=== PATIENT | male | born 1990 | race Hispanic/Latino ===

== ENCOUNTER 2017-02-21 16:11 | Emergency (ER) | payer OTHER ==
[~2017-02-21] VITALS: Ht 180.3 cm; Wt 70.5 kg
[2017-02-21 16:27] VITALS: BP 130/83; PULSE 77; RESP 16; O2SAT 100
--- NOTE | 2017-02-21 18:09 | ED.REPORT ---
HPI-Dental/Mouth Prob Date of Service Feb 21, 2017 ED Provider: Ryder Perry DO The pt is a 26 y/o male with no pertinent hx who presents to the ED complaining of right sided dental pain that radiates to his head and right ear for the last 2 days. He rates his pain past 10 in severity. He is having difficulty eating and talking due to the pain and mild swelling. He denies fever. He has been using 3 Tylenol and ibuprofen each, without relief. His dentist does not have an appointment available for a month. Nursing Notes Stated Complaint: DENTAL PAIN Chief Complaint: Dental Nursing Notes Reviewed: Yes Allergies: Coded Allergies: No Known Allergies (Unverified , 02/21/17) Scheduled Amoxicillin (Amoxicillin) 500 Mg Tablet 500 MG PO TID Scheduled PRN Hydrocodone-Acetaminophen 7.5-325 mg (Hydrocodone-Acetaminophen 7.5-325 mg) 1 Each Tablet 1 TABLET PO Q4H PRN PRN For Pain Ibuprofen (Ibuprofen) 800 Mg Tablet 800 MG PO TID PRN PRN For Pain General Time Seen by MD: 18:04 Chief Complaint Tooth pain Hx Obtained From: Patient Arrived By: Walk-in Onset Occurred: 2 days ago Symptom Duration: Since onset Location: : Tooth upper R lat incisor Quality: Painful Radiation: : Ear right: Face Severity: Current: Severe Severity: Maximum: Severe Recent Healthcare: No recent doctor visit Past Medical History Past Medical History none reported Past Surgical History none reported Smoking History Unknown if Ever Smoker Ambulatory Status Independent Review of Systems Repots: mild right jaw swelling Constitutional: Denies: Fever Ears / Nose / Throat: Reports: Toothache Complete sys rev & neg: except as marked. Physical Exam Initial Vital Signs Vital Signs (First) Date Time Temp Pulse Resp B/P Pulse Ox O2 Delivery O2 Flow Rate FiO2 02/21/17 16:27 36.7 77 16 130/83 100 Initial VS: Reviewed Head / Eyes: Atraumatic, Normocephalic Abdomen / GI: No guarding, No distention Extremities: Vascular intact, Neuro intact, No swelling, No tenderness Skin: Warm, Dry, No cyanosis Neurologic: Alert, Oriented, Nonfocal ENT: Atraumatic, Pharynx NL, No pooling of secretions Dental / Gums: Positive: Decay extensive, Dental caries present Tenderness present at tooth #6. Surrounding gingival erythema and tenderness Neck: Atraumatic, Supple, Full range of motion General/Constitutional: Awake, Alert Distress / Hydration: Positive: Distress mild Respiratory / Chest: Atraumatic, No respiratory distress, No wheezing, No chest wall deformity Re-Eval/Medical Decision Re-Evaluation/Progress : Time of Eval: 18:20 Re-Evaluation/Progress Note: Rechecked pt. Discussed diagnosis and plan to discharge. Pt understands and agrees with the plan. F/U instruction and RTER warning given. All questions addressed. Counseled Regarding: Diagnosis, Need for follow-up, When/why to return to ED Discharge & Departure Primary Impression: Toothache Additional Impression: Tooth infection Disposition: Home Discharge Condition All VS Reviewed: Yes Condition: Stable Patient Instructions: Dental Caries (ED) Additional Instructions: Thank you for entrusting us with your care today. Take the antibiotic as prescribed. Please complete the full course of the medication. Take the pain medication as prescribed. You make take up to 4 Ibuprofen at a time for pain. A dentist can best help with your condition. If you experience any new or worsening symptoms, please return to the emergency department. Referrals: Nigel Mccormick MDibsaadia Attestation Portions of this note were transcribed by Francesco Hall. I,, personally performed the history,physical exam and medical decision-making;I reviewed and confirmed the accuracy of the information in the transcribed note. Signed by Stef Norwood. 02/21/17 copies to: Nigel Mccormick MD, Gary R DO Feb 21, 2017 18:09 Francesco Hall Feb 21, 2017 18:19
[2017-02-21] MEDS ORDERED: AMOX500T2 PO (18:31)
[2017-02-21] MEDS ORDERED: HYDR-3825 PO (18:31)
[2017-02-21] MEDS ORDERED: IBUP800T28 PO (18:31)
[2017-02-21 18:49] VITALS: BP 130/83; PULSE 77; RESP 16; O2SAT 100
== END 2017-02-21 18:51 | disposition home or self-care (01) ==
LOC: SED 16:11
DX: K08.89 Other specified disorders of teeth and supporting structures (principal); K04.7 Periapical abscess without sinus